=== PATIENT | male | born 1950 | race Caucasian/White ===

== ENCOUNTER → 2022-11-16 | Outpatient (CLI) | payer OTHER ==
[2022-11-16 15:46] LABS: Creatinine, Urine Random 27.3 mg/dL (27.00-270.00); Protein, Urine Random 51.7 mg/dL (0.0-11.9); Protein/Creat Ratio, Ur Random 1.9
== END | disposition home or self-care (01) ==
LOC: LAB 13:49 → LAB SHORT 13:49
PROVIDERS: Family Medicine
DX: N18.30 Chronic kidney disease, stage 3 unspecified (principal)
CPT/HCPCS: 82570; 84156

== ENCOUNTER → 2022-12-14 | Outpatient (CLI) | payer OTHER ==
[2022-12-14 20:01] LABS: Percent Saturation 18.7 % (20.0-50.0)
== END | disposition home or self-care (01) ==
LOC: LAB SHORT 16:41
PROVIDERS: Family Medicine
DX: G60.9 Hereditary and idiopathic neuropathy, unspecified (principal); E61.1 Iron deficiency; K59.09 Other constipation; R41.89 Other symptoms and signs involving cognitive functions and awareness; Z90.5 Acquired absence of kidney
CPT/HCPCS: 82728; 83540; 83550

== ENCOUNTER → 2023-04-01 | Outpatient (CLI) | payer OTHER ==
[2023-04-01 15:36] LABS: Albumin, Blood 3.8 g/dL (3.4-5.0); Albumin/Globulin Ratio 1.1 (0.8-1.8); Bilirubin, Total 0.6 mg/dL (0.1-1.0); Bun/Creatinine Ratio 14.7 (12.0-20.0); Calcium, Blood 8.8 mg/dL (8.5-10.1); Creatinine, Blood 1.36 mg/dL (0.60-1.20); Globulin, Blood 3.4 g/dL (2.2-4.0); Potassium, Blood 3.8 mmol/L (3.5-5.5); Total Protein, Blood 7.2 g/dL (6.4-8.2)
== END | disposition home or self-care (01) ==
LOC: LAB 09:55 → LAB SHORT 09:55
PROVIDERS: Student in an Organized Health Care Education/Training Program
DX: R60.0 Localized edema (principal)
CPT/HCPCS: 80053

== ENCOUNTER 2023-06-13 17:27 | Inpatient (IN) | payer OTHER ==
[~2023-06-13] VITALS: Ht 180.3 cm; Wt 123.4 kg
[2023-06-13] MEDS ORDERED: ALDACTONE100 MG PO (17:59)
[2023-06-13] MEDS ORDERED: FLUO10 PO (18:00)
[2023-06-13] MEDS ORDERED: AMLODIPINE BESY10 MG PO (18:01)
[2023-06-13] MEDS ORDERED: BUME1 (18:01)
[2023-06-13] MEDS ORDERED: CARVEDILOL6.25 MG PO (18:01)
[2023-06-13] MEDS ORDERED: POTCHL20ER (18:01)
[2023-06-13] MEDS ORDERED: Simvastatin40 MG PO (18:02)
[2023-06-13] MEDS ORDERED: FLUC150A PO (18:02)
[2023-06-13] MEDS ORDERED: BUPROPION XL150 M1 PO (18:02)
[2023-06-13] MEDS ORDERED: HYDR10 PO (18:03)
[2023-06-13] MEDS ORDERED: TRAZ100 PO (18:03)
[2023-06-13] MEDS ORDERED: EUTHYROX25 MC1 (18:03)
[2023-06-13] MEDS ORDERED: TERB250 (18:04)
[2023-06-13] MEDS ORDERED: LOSA25 (18:04)
[2023-06-13 18:25] LABS: BASOPHILS ABSOLUTE AUTO 0.05 K/mm3 (0.00-0.23); BASOPHILS PERCENT AUTO 1 % (0-2); EOSINOPHILS ABSOLUTE AUTO 0.09 K/mm3 (0.00-0.68); EOSINOPHILS PERCENT AUTO 1 % (0-6); Hematocrit 39.3 % (37.0-53.0); Hemoglobin 12.7 g/dL (13.5-17.5); IMMATURE GRAN ABSOLUTE AUTO 0.04 K/mm3 (0.00-0.10); IMMATURE GRAN PERCENT AUTO 0 % (0-1); LYMPHOCYTES ABSOLUTE AUTO 1.53 K/mm3 (0.84-5.20); LYMPHOCYTES PERCENT AUTO 16 % (21-46); MONOCYTES ABSOLUTE AUTO 0.77 K/mm3 (0.16-1.47); MONOCYTES PERCENT AUTO 8 % (4-13); Mean Corpuscular HGB 28.4 pg (26.0-34.0); Mean Corpuscular HGB Conc 32.3 g/dL (31.5-36.5); Mean Corpuscular Volume 88 fL (80-100); Mean Platelet Volume 10.9 fL (9.1-12.4); NEUTROPHILS ABSOLUTE AUTO 7.02 K/mm3 (1.96-9.15); NEUTROPHILS PERCENT AUTO 74 % (41-73); Platelet Count 226 K/mm3 (150-400); RDW Standard Deviation 45.2 fL (35.1-46.3); Red Blood Cell Count 4.47 M/mm3 (4.30-5.90)
[2023-06-13 18:47] LABS: Magnesium, Blood 3.1 mg/dL (1.6-2.4)
[2023-06-13 18:50] LABS: Thyroid Stimulating Hormone 4.96 uIU/mL (0.360-4.800)
[2023-06-13 19:04] LABS: Albumin, Blood 4.3 g/dL (3.4-5.0); Albumin/Globulin Ratio 1.2 (0.8-1.8); Bilirubin, Total 0.5 mg/dL (0.1-1.0); Bun/Creatinine Ratio 32.9 (12.0-20.0); Calcium, Blood 9.6 mg/dL (8.5-10.1); Creatinine, Blood 3.07 mg/dL (0.60-1.20); Globulin, Blood 3.5 g/dL (2.2-4.0); Phosphorus, Blood 6.1 mg/dL (2.5-4.9); Potassium, Blood 7.7 mmol/L (3.5-5.5); Total Protein, Blood 7.8 g/dL (6.4-8.2)
[2023-06-13 19:08] LABS: International Normalized Ratio 0.96; Prothrombin Time Results 10.1 Sec (9.7-11.5)
[2023-06-13 19:44] LABS: Influenza A, PCR NEGATIVE (NEGATIVE); Influenza B, PCR NEGATIVE (NEGATIVE); Resp Syncytial Virus, PCR NEGATIVE (NEGATIVE); SARS-Cov-2 (COVID-19) PCR, MMC NEGATIVE (NEGATIVE)
[2023-06-13 23:20] VITALS: BP 158/74
--- NOTE | 2023-06-14 01:12 | NUR ---
TRANSFER NOTE THIS RN RECEIVED REPORT FROM DENISE SANDRA IN THE ED VIA PHONE. PT TRANSFERRED TO PCU 5 AT 2315. PT ABLE TO AMBULATE FROM [facility] TO BED. PT DENIED DIZZINESS WITH AMBULATION, BUT STATED HE STILL FEELS WEAK, MILD TREMORS NOTED IN HANDS, PT STATING THIS HAS BEEN GOING ON FOR SEVERAL DAYS. PT NOTED TO BE SINUS TANYA WITH HR 40-50'S. DENIED CHEST PAIN/PRESSURE. BP STABLE. ON RA WITH SPO2 >92%. PT A&O X4. ABLE TO MAKE NEEDS KNOWN. MEDICATED PER EMAR FOR HYPERKALEMIA. MD GLEZ TO BEDSIDE AT 0100; MD GLEZ WITH VERBAL ORDER FOR PATIENT TO HAVE A CARDIAC DIET. BED IN LOWEST POSITION AND CALL LIGHT WITHIN REACH.
[2023-06-14 04:08] LABS: BASOPHILS ABSOLUTE AUTO 0.05 K/mm3 (0.00-0.23); BASOPHILS PERCENT AUTO 1 % (0-2); EOSINOPHILS PERCENT AUTO 1 % (0-6); Hemoglobin 11.9 g/dL (13.5-17.5); IMMATURE GRAN ABSOLUTE AUTO 0.03 K/mm3 (0.00-0.10); IMMATURE GRAN PERCENT AUTO 0 % (0-1); LYMPHOCYTES ABSOLUTE AUTO 1.63 K/mm3 (0.84-5.20); LYMPHOCYTES PERCENT AUTO 19 % (21-46); MONOCYTES ABSOLUTE AUTO 0.88 K/mm3 (0.16-1.47); MONOCYTES PERCENT AUTO 10 % (4-13); Mean Corpuscular HGB 28.7 pg (26.0-34.0); Mean Corpuscular HGB Conc 32.2 g/dL (31.5-36.5); Mean Corpuscular Volume 89 fL (80-100); Mean Platelet Volume 10.7 fL (9.1-12.4); NEUTROPHILS ABSOLUTE AUTO 6.05 K/mm3 (1.96-9.15); NEUTROPHILS PERCENT AUTO 69 % (41-73); Platelet Count 193 K/mm3 (150-400); RDW Coefficient Variation 13.9 % (11.7-14.2); RDW Standard Deviation 45.3 fL (35.1-46.3); Red Blood Cell Count 4.15 M/mm3 (4.30-5.90); White Blood Cell Count 8.74 K/mm3 (4.00-11.30)
[2023-06-14 04:27] VITALS: BP 128/64
--- NOTE | 2023-06-14 05:09 | NUR ---
SHIFT SUMMARY NO ACUTE CHANGES SINCE ARRIVAL TO UNIT AND PREVIOUS NOTE. PT CONTINUES TO BE IN SB WITH HR 40-60. DENIES CHEST PAIN/PRESSURE. BP STABLE. LR INFUSING PER EMAR. PT IS ABLE TO MAKE NEEDS KNOWN. BED IN LOWEST POSITION AND CALL LIGHT WITHIN REACH. THIS RN WILL REPORT TO ONCOMING RN.
[2023-06-14 05:49] LABS: Albumin, Blood 3.7 g/dL (3.4-5.0); Albumin/Globulin Ratio 1.2 (0.8-1.8); Bilirubin, Total 0.4 mg/dL (0.1-1.0); Bun/Creatinine Ratio 31.8 (12.0-20.0); Calcium, Blood 9.4 mg/dL (8.5-10.1); Creatinine, Blood 2.74 mg/dL (0.60-1.20); Globulin, Blood 3.1 g/dL (2.2-4.0); Total Protein, Blood 6.8 g/dL (6.4-8.2)
[2023-06-14 08:46] VITALS: BP 121/52
[2023-06-14 12:25] VITALS: BP 131/54
[2023-06-14 17:30] VITALS: BP 127/97
--- NOTE | 2023-06-14 19:46 | NUR ---
SHIFT SUMMARY ALERT, ORIENTED, COOPERATIVE THROUGHOUT SHIFT. SBA TO BATHROOM. DIZZINESS AND SHAKINESS TO HANDS IMPROVED THROUGHOUT DAY. CONTINUED IV INFUSION OF SODIUM BICARB WITH DEXTROSE AT 75/HR. POTASSIUM CONTINUES TO TREND DOWN TO NORMAL RANGE. TOLERATING DIET AND LIQUIDS. GOOD URINE OUTPUT. RENAL US COMPLETED. MEDICAL STATUS WITH TELE. POSSIBLE DISCHARGE HOME TOMORROW AND FOLLOW UP WITH NEPHROLOGY AND PCP.
[2023-06-14 20:49] VITALS: BP 141/89
[2023-06-14 23:46] VITALS: BP 134/72
[2023-06-15 03:59] VITALS: BP 133/71
[2023-06-15 04:24] LABS: BASOPHILS ABSOLUTE AUTO 0.03 K/mm3 (0.00-0.23); BASOPHILS PERCENT AUTO 0 % (0-2); EOSINOPHILS ABSOLUTE AUTO 0.16 K/mm3 (0.00-0.68); EOSINOPHILS PERCENT AUTO 2 % (0-6); Hematocrit 33.3 % (37.0-53.0); Hemoglobin 10.9 g/dL (13.5-17.5); IMMATURE GRAN ABSOLUTE AUTO 0.02 K/mm3 (0.00-0.10); IMMATURE GRAN PERCENT AUTO 0 % (0-1); LYMPHOCYTES ABSOLUTE AUTO 1.58 K/mm3 (0.84-5.20); LYMPHOCYTES PERCENT AUTO 23 % (21-46); MONOCYTES ABSOLUTE AUTO 0.63 K/mm3 (0.16-1.47); MONOCYTES PERCENT AUTO 9 % (4-13); Mean Corpuscular HGB 28.8 pg (26.0-34.0); Mean Corpuscular HGB Conc 32.7 g/dL (31.5-36.5); Mean Corpuscular Volume 88 fL (80-100); Mean Platelet Volume 10.5 fL (9.1-12.4); NEUTROPHILS ABSOLUTE AUTO 4.46 K/mm3 (1.96-9.15); NEUTROPHILS PERCENT AUTO 65 % (41-73); Platelet Count 174 K/mm3 (150-400); RDW Coefficient Variation 13.9 % (11.7-14.2); RDW Standard Deviation 44.8 fL (35.1-46.3); Red Blood Cell Count 3.79 M/mm3 (4.30-5.90); White Blood Cell Count 6.88 K/mm3 (4.00-11.30)
--- NOTE | 2023-06-15 04:45 | NUR ---
SHIFT SUMMARY THIS RN ASSUMED CARE OF PATIENT AT 1900. PT A&O X4. ABLE TO MAKE NEEDS KNOWN. SB WITH HR 40-60 DURING THIS SHIFT. PT DENIES DIZZINESS, SHAKING, WEAKNESS, AND CHEST PAIN/PRESSURE. ON RA WITH SPO2 >92%. BP STABLE. AFEBRILE. PT IS ABLE TO REPOSITION SELF IN BED INDEPENDENTLY. BICARB GTT INFUSING PER EMAR. BED IN LOWEST POSITION AND CALL LIGHT WITHIN REACH. THIS RN WILL REPORT TO ONCOMING RN
[2023-06-15 04:46] LABS: Albumin, Blood 3.4 g/dL (3.4-5.0); Albumin/Globulin Ratio 1.2 (0.8-1.8); Bilirubin, Total 0.3 mg/dL (0.1-1.0); Bun/Creatinine Ratio 25.8 (12.0-20.0); Creatinine, Blood 2.13 mg/dL (0.60-1.20); Globulin, Blood 2.8 g/dL (2.2-4.0); Potassium, Blood 4.9 mmol/L (3.5-5.5); Total Protein, Blood 6.2 g/dL (6.4-8.2)
[2023-06-15 07:59] VITALS: BP 137/68
--- NOTE | 2023-06-15 15:55 | NUR ---
PT DISCHARGE TO HOME WITH DISCHARGE ORDERS, PRESCRIPTION SENT TO [facility]. DISCLOSED DISCHARGE INFORMATION WITH BOTH AND THE PT. BOTH VERBALIZED UNDERSTANDING. LABS TO BE DONE ON THE WRITTEN ON THE [facility] INSTRUCTIONS. ALL BELONGINGS SENT WITH THE PT, PT ACCOMPANIED TO [facility] VIA WHEELCHAIR BY PCT. AMBULATORY FOR TRANSPORT.
== END 2023-06-15 15:13 | disposition home or self-care (01) | DRG 683 ==
LOC: ER 17:27 → PCU 17:28
PROVIDERS: Emergency Medicine; Family Medicine; ADMIT Student in an Organized Health Care Education/Training Program
DX: N17.9 Acute kidney failure, unspecified (principal); I13.0 Hypertensive heart and chronic kidney disease with heart failure and stage 1 through stage 4 chronic kidney disease, or unspecified chronic kidney disease; I50.32 Chronic diastolic (congestive) heart failure; E87.5 Hyperkalemia; I44.0 Atrioventricular block, first degree; R00.1 Bradycardia, unspecified; Z20.822 Contact with and (suspected) exposure to COVID-19; R79.89 Other specified abnormal findings of blood chemistry; E03.9 Hypothyroidism, unspecified; N18.30 Chronic kidney disease, stage 3 unspecified; F32.A Depression, unspecified; T50.995A Adverse effect of other drugs, medicaments and biological substances, initial encounter; E78.5 Hyperlipidemia, unspecified; Z98.49 Cataract extraction status, unspecified eye; Z79.890 Hormone replacement therapy; Z79.899 Other long term (current) drug therapy; Z90.5 Acquired absence of kidney; Z79.4 Long term (current) use of insulin; Z96.653 Presence of artificial knee joint, bilateral
CPT/HCPCS: 0241U; 36415; 71046; 76770; 80053; 82947; 83735; 83935; 84100; 84132; 84300; 84443; 84484; 84540; 85025; 85610; 85730; 93005; 93010; 94644; 94645; 94664; 94760; 96361; 96365; 96372; 96374; 96375; 96376; 99285-25; A9270; G0378; J0612; J1610; J1650; J1815; J2405; J7030; J7070; J7120

== ENCOUNTER → 2025-05-28 | Outpatient (CLI) | payer OTHER ==
[~2025-05-28] MED LIST: ALDACTONE100 MG PO; AMLODIPINE BESY10 MG PO; BUME1; BUPROPION XL150 M1 PO; CARVEDILOL6.25 MG PO; EUTHYROX25 MC1; FLUC150A PO; FLUO10 PO; HYDR10 PO; LOSA25; POTCHL20ER; Simvastatin40 MG PO; TERB250; TRAZ100 PO
[2025-05-28 15:13] LABS: BASOPHILS ABSOLUTE AUTO 0.04 K/mm3 (0.00-0.23); BASOPHILS PERCENT AUTO 1 % (0-2); EOSINOPHILS ABSOLUTE AUTO 0.14 K/mm3 (0.00-0.68); EOSINOPHILS PERCENT AUTO 2 % (0-6); Hematocrit 40.7 % (37.0-53.0); Hemoglobin 13.5 g/dL (13.5-17.5); IMMATURE GRAN ABSOLUTE AUTO 0.07 K/mm3 (0.00-0.10); IMMATURE GRAN PERCENT AUTO 1 % (0-1); LYMPHOCYTES ABSOLUTE AUTO 1.51 K/mm3 (0.84-5.20); LYMPHOCYTES PERCENT AUTO 17 % (21-46); MONOCYTES ABSOLUTE AUTO 0.88 K/mm3 (0.16-1.47); MONOCYTES PERCENT AUTO 10 % (4-13); Mean Corpuscular HGB Conc 33.2 g/dL (31.5-36.5); Mean Corpuscular Volume 87 fL (80-100); NEUTROPHILS ABSOLUTE AUTO 6.16 K/mm3 (1.96-9.15); NEUTROPHILS PERCENT AUTO 70 % (41-73); NRBC ABSOLUTE 0.00 K/mm3 (0.00-0.02); NRBC Auto 0.0 /100 WBC (0.0-0.2); Platelet Count 184 K/mm3 (150-400); RDW Coefficient Variation 13.6 % (11.7-14.2); RDW Standard Deviation 42.4 fL (35.1-46.3)
[2025-05-28 15:25] LABS: Alanine Aminotransfer (ALT/SGP 29.0 U/L (12-78); Albumin, Blood 4.0 g/dL (3.4-5.0); Albumin/Globulin Ratio 1.1 (0.8-1.8); Anion Gap 11.0 mmol/L (6-16); Aspartate Aminotrans (AST/SGOT 17.0 U/L (12-37); Bilirubin, Total 0.6 mg/dL (0.1-1.0); Blood Urea Nitrogen 40.0 mg/dL (8-24); CO2, Blood 30.0 mmol/L (21-32); Calcium, Blood 9.6 mg/dL (8.5-10.1); Chloride, Blood 103.0 mmol/L (98-108); Creatinine, Blood 1.88 mg/dL (0.60-1.20); Globulin, Blood 3.6 g/dL (2.2-4.0); Glucose, Blood 127.0 mg/dL (70-99); Potassium, Blood 4.2 mmol/L (3.5-5.5); Sodium, Blood 140.0 mmol/L (136-145); Total Protein, Blood 7.6 g/dL (6.4-8.2)
== END ==
LOC: LAB SHORT 15:07 → LAB 15:07
PROVIDERS: Family Medicine
DX: R07.89 Other chest pain (principal)
CPT/HCPCS: 80053; 84484; 85025; 85379